=== PATIENT | male | born 1965 ===

== ENCOUNTER → 2021-09-11 | Outpatient (CLI) | payer OTHER ==
[~2021-09-11] MED LIST: FLONASE ALLER15.8 ML; IBU800 MG PO; MOBIC15 MG PO; TIZANIDINE HCL4 MG PO
[2021-09-11 10:28] LABS: HEMOGLOBIN 17.1 gm/dl (14.0-17.5); RED BLOOD COUNT 4.64 M/UL (4.20-5.50); WHITE BLOOD COUNT 6.4 K/UL (4.5-11.0)
[2021-09-11 10:57] LABS: BUN/CREATININE RATIO 7 (0-10)
== END ==
LOC: OPSV2 09:20
PROVIDERS: Orthopaedic Surgery
DX: Z01.812 Encounter for preprocedural laboratory examination (principal); G56.02 Carpal tunnel syndrome, left upper limb
CPT/HCPCS: 80048; 85025

== ENCOUNTER → 2021-09-19 | Day surgery (SDC) | payer OTHER ==
[~2021-09-19] VITALS: Ht 177.8 cm; Wt 104.8 kg
[~2021-09-19] MED LIST changes: +ENDOCET 7.5-321 EACH PO; +TYLENOL325 MG PO
== END | disposition home or self-care (01) ==
LOC: OR 06:54
DX: G56.22 Lesion of ulnar nerve, left upper limb (principal); M19.90 Unspecified osteoarthritis, unspecified site; M51.36 Other intervertebral disc degeneration, lumbar region; F17.210 Nicotine dependence, cigarettes, uncomplicated; Z79.1 Long term (current) use of non-steroidal anti-inflammatories (NSAID); Z79.891 Long term (current) use of opiate analgesic; Z79.899 Other long term (current) drug therapy
CPT/HCPCS: J1885; J2001; J2250; J2405; J2704; J3010; J7120

== ENCOUNTER → 2022-04-07 | Outpatient (CLI) | payer MEDICARE, OTHER ==
[2022-04-07 13:30] LABS: HEMOGLOBIN 16.1 gm/dl (14.0-17.5); RED BLOOD COUNT 4.1 M/UL (4.20-5.50); WHITE BLOOD COUNT 8.4 K/UL (4.5-11.0)
[2022-04-07 14:10] LABS: BUN/CREATININE RATIO 11 (0-10)
[2022-04-08 11:12] LABS: ANTISTREPTOLYSIN O AB 58.9 IU/mL (0.0-200.0); RHEUMATOID ARTHRITIS FACTOR 19.3 IU/mL (<14.0)
== END ==
LOC: LAB 13:04
PROVIDERS: Orthopaedic Surgery
DX: M17.0 Bilateral primary osteoarthritis of knee (principal)
CPT/HCPCS: 36415; 80053; 84550; 85027; 85652; 86038; 86060; 86140; 86200; 86431